=== PATIENT | female | born 1945 | race African-American/Black ===

== ENCOUNTER 2021-02-16 11:00 | Inpatient (IN) ==
[2021-02-16 12:03] LABS: Basophils % 0.3 % (0.0-0.8); Eosinophils # 0.1 10*3/uL (0.0-0.87); Eosinophils % 0.7 % (0.00-10.9); Hemoglobin 13.4 GM/DL (12.0-16.0); Immature Granulocytes % 0.5 %; Immature Granulocytes Absolute 0.06 #; Lymphocytes % 34.4 % (21.3-54.2); Mean Corpuscular HGB Conc 32.7 GM/DL (32-36); Mean Platelet Volume 10.9 FL (9.6-12.0); Monocytes % 6.5 % (1.7-12.7); Neutrophils % 57.6 % (38.7-73.9); Platelet Count 153 T/CUMM (130-400); Red Blood Count 5.06 MC/CUMM (3.8-5.5); Red Cell Distribution Width 14.8 % (9.3-17.3); White Blood Count 11.6 T/CUMM (4-12)
[2021-02-16] MEDS ORDERED: SODIUM CHLORIDE 0.9% 1,000 ML IV STA (12:19)
[2021-02-16] MEDS ORDERED: VANCOMYCIN INJ 1,750 MG in SODIUM CHLORIDE 0.9% 250 ML IV ONE (12:19)
[2021-02-16 12:23] LABS: Blood Urea Nitrogen 20 MG/DL (7-18); Calcium 8.6 MG/DL (8.5-10.1); Carbon Dioxide 26 MMOL/L (21-32); Estimated Glom Filtration Rate 66 ML/MIN; Glucose 153 MG/DL (74-106); Potassium 2.8 MMOL/L (3.5-5.1); Sodium 136 MMOL/L (136-145)
[2021-02-16] MEDS ORDERED: VANCOMYCIN INJ 1,750 MG in SODIUM CHLORIDE 0.9% 500 ML IV ONE (12:30)
[2021-02-16] MEDS ORDERED: DEXTROSE 50% 25 GM/50 ML VIAL IV PRN (13:15)
[2021-02-16] MEDS ORDERED: ONDANSETRON 4 MG/2 ML VIAL IV PRN (13:15)
[2021-02-16] MEDS ORDERED: GLUCAGON 1 MG VIAL IM PRN (13:15)
[2021-02-16] MEDS ORDERED: TEMAZEPAM 15 MG CAPSULE PO PRN (13:19)
[2021-02-16] MEDS: GABAPENTIN 300 MG CAPSULE PO SCH ×2 (15:06→20:54)
[2021-02-16] MEDS: ENOXAPARIN 40 MG/0.4 ML SYRINGE SUBCUT SCH (15:08)
[2021-02-16] MEDS: SODIUM CHLORIDE 0.45% 1,000 ML IV SCH (15:59)
[2021-02-16] MEDS: DOCUSATE SODIUM 100 MG CAPSULE PO SCH (20:54)
[2021-02-17] MEDS: SODIUM CHLORIDE 0.45% 1,000 ML IV SCH ×4 (00:27→20:06)
[2021-02-17 07:11] LABS: Albumin 2.7 G/DL (3.4-5.0); Bilirubin,Total 0.8 MG/DL (0.20-1.00); Total Protein 6.5 G/DL (6.4-8.2)
[2021-02-17] MEDS ORDERED: SODIUM CHLORIDE 0.9% 1,000 ML IV ONE (08:34)
[2021-02-17] MEDS: PIPERACILLIN/TAZOBACTAM 3,375 MG in SODIUM CHLORIDE 0.9% 100 ML IV SCH ×2 (09:41→17:30)
[2021-02-17] MEDS: GABAPENTIN 300 MG CAPSULE PO SCH ×3 (09:46→20:06)
[2021-02-17] MEDS: CHLORTHALIDONE 25 MG TABLET PO SCH (09:46)
[2021-02-17] MEDS: ASPIRIN EC 81 MG TABLET PO SCH (09:46)
[2021-02-17] MEDS: DOCUSATE SODIUM 100 MG CAPSULE PO SCH ×2 (09:46→20:06)
[2021-02-17] MEDS: FERROUS SULFATE 325 MG TABLET PO SCH (09:46)
[2021-02-17] MEDS: FUROSEMIDE 20 MG TABLET PO SCH (09:46)
[2021-02-17] MEDS: predniSONE 5 MG TABLET PO SCH (09:47)
[2021-02-17] MEDS: PANTOPRAZOLE 40 MG TABLET PO SCH (09:47)
[2021-02-17] MEDS: amLODIPine 10 MG TABLET PO SCH (09:47)
[2021-02-17] MEDS ORDERED: VANCOMYCIN INJ 1,750 MG in SODIUM CHLORIDE 0.9% 500 ML IV SCH (13:00)
[2021-02-17] MEDS ORDERED: POTASSIUM CHLORIDE 20 MEQ TABLET PO ONE (17:00)
[2021-02-17] MEDS: MORPHINE 2 MG/1 ML SYRINGE IV PRN (20:05)
[2021-02-17] MEDS: ENOXAPARIN 40 MG/0.4 ML SYRINGE SUBCUT SCH (20:06)
[2021-02-18] MEDS: PIPERACILLIN/TAZOBACTAM 3,375 MG in SODIUM CHLORIDE 0.9% 100 ML IV SCH ×2 (01:25→08:47)
[2021-02-18] MEDS: MORPHINE 2 MG/1 ML SYRINGE IV PRN (03:22)
[2021-02-18] MEDS: ACETAMINOPHEN 325 MG TABLET PO PRN (04:11)
[2021-02-18] MEDS: SODIUM CHLORIDE 0.45% 1,000 ML IV SCH ×3 (04:12→21:21)
[2021-02-18] MEDS: amLODIPine 10 MG TABLET PO SCH (08:47)
[2021-02-18] MEDS ORDERED: BUPIVACAINE 0.5% 50 ML VIAL ONE (09:53)
[2021-02-18] MEDS ORDERED: propofoL 200 MG/20 ML VIAL IV ONE (10:22)
[2021-02-18] MEDS ORDERED: LIDOCAINE 2% 5 ML VIAL ONE (10:22)
[2021-02-18] MEDS ORDERED: fentaNYL 100 MCG/2 ML VIAL ONE (10:22)
[2021-02-18] MEDS ORDERED: ONDANSETRON 4 MG/2 ML VIAL ONE (10:22)
[2021-02-18] MEDS: FERROUS SULFATE 325 MG TABLET PO SCH (12:31)
[2021-02-18] MEDS: predniSONE 5 MG TABLET PO SCH (12:31)
[2021-02-18] MEDS: ASPIRIN EC 81 MG TABLET PO SCH (12:31)
[2021-02-18] MEDS: PANTOPRAZOLE 40 MG TABLET PO SCH (12:31)
[2021-02-18] MEDS: FUROSEMIDE 20 MG TABLET PO SCH (12:32)
[2021-02-18] MEDS: GABAPENTIN 300 MG CAPSULE PO SCH ×3 (12:32→21:22)
[2021-02-18] MEDS: CHLORTHALIDONE 25 MG TABLET PO SCH (12:32)
[2021-02-18] MEDS: DOCUSATE SODIUM 100 MG CAPSULE PO SCH ×2 (12:32→21:22)
[2021-02-18] MEDS: MEROPENEM 500 MG in SODIUM CHLORIDE 0.9% 100 ML IV SCH ×2 (15:32→21:22)
[2021-02-19] MEDS: MEROPENEM 500 MG in SODIUM CHLORIDE 0.9% 100 ML IV SCH ×4 (03:40→21:28)
[2021-02-19] MEDS: SODIUM CHLORIDE 0.45% 1,000 ML IV SCH (05:35)
[2021-02-19] MEDS: CHLORTHALIDONE 25 MG TABLET PO SCH (09:54)
[2021-02-19] MEDS: ASPIRIN EC 81 MG TABLET PO SCH (09:54)
[2021-02-19] MEDS: ACETAMINOPHEN 325 MG TABLET PO PRN (09:54)
[2021-02-19] MEDS: DOCUSATE SODIUM 100 MG CAPSULE PO SCH ×2 (09:54→21:29)
[2021-02-19] MEDS: GABAPENTIN 300 MG CAPSULE PO SCH ×3 (09:54→21:29)
[2021-02-19] MEDS: FERROUS SULFATE 325 MG TABLET PO SCH (09:54)
[2021-02-19] MEDS: FUROSEMIDE 20 MG TABLET PO SCH ×2 (09:54→12:39)
[2021-02-19] MEDS: predniSONE 5 MG TABLET PO SCH (09:55)
[2021-02-19] MEDS: PANTOPRAZOLE 40 MG TABLET PO SCH (09:55)
[2021-02-19] MEDS: amLODIPine 10 MG TABLET PO SCH (10:02)
[2021-02-19] MEDS: NEOMYCIN/POLYMYXIN/BACITRACIN OINT 0.9 GM PACK TOP SCH (12:14)
[2021-02-19] MEDS: POTASSIUM CHLORIDE 20 MEQ TABLET PO PRN ×3 (13:03→17:54)
[2021-02-19] MEDS: ENOXAPARIN 40 MG/0.4 ML SYRINGE SUBCUT SCH (21:30)
[2021-02-19] MEDS: MORPHINE 2 MG/1 ML SYRINGE IV PRN (23:11)
[2021-02-20] MEDS: POTASSIUM CHLORIDE 20 MEQ TABLET PO PRN ×3 (00:06→09:11)
[2021-02-20] MEDS: MEROPENEM 500 MG in SODIUM CHLORIDE 0.9% 100 ML IV SCH ×2 (03:11→11:44)
[2021-02-20] MEDS: MORPHINE 2 MG/1 ML SYRINGE IV PRN (03:12)
[2021-02-20] MEDS: NEOMYCIN/POLYMYXIN/BACITRACIN OINT 0.9 GM PACK TOP SCH (09:11)
[2021-02-20] MEDS: FERROUS SULFATE 325 MG TABLET PO SCH (11:43)
[2021-02-20] MEDS: ASPIRIN EC 81 MG TABLET PO SCH (11:43)
[2021-02-20] MEDS: CHLORTHALIDONE 25 MG TABLET PO SCH (11:43)
[2021-02-20] MEDS: DOCUSATE SODIUM 100 MG CAPSULE PO SCH (11:43)
[2021-02-20] MEDS: GABAPENTIN 300 MG CAPSULE PO SCH (11:44)
[2021-02-20] MEDS: FUROSEMIDE 20 MG TABLET PO SCH (11:44)
[2021-02-20] MEDS: predniSONE 5 MG TABLET PO SCH (11:45)
[2021-02-20] MEDS: PANTOPRAZOLE 40 MG TABLET PO SCH (11:45)
[2021-02-20] MEDS: amLODIPine 10 MG TABLET PO SCH (11:45)
[2021-02-20 12:19] VITALS: BP 126/76
== END 2021-02-20 12:54 | disposition home or self-care (01) | DRG 256 ==
LOC: N.ED 11:00 → INTOOBSV 13:15 → N.EDINP 13:15 → N.5E 14:02
PROVIDERS: ADMIT Family Medicine; ATTEND Family Medicine